=== PATIENT | female | born 1950 | race Caucasian/White ===

== ENCOUNTER 2021-01-03 19:01 | Emergency (ER) | payer OTHER ==
[~2021-01-03] VITALS: Ht 157.5 cm; Wt 96.2 kg
[2021-01-03 19:12] VITALS: BP 142/78
--- NOTE | 2021-01-03 19:35 | NUR ---
PT WAS IN HER KITCHEN, TRIPPED AND FELL AND HIT HER R SHOULDER ON THE KITCHEN COUNTER TOP. DENIES HITTING HER HEAD, NO LOC. PT UNABLE TO RAISE HER R ARM, HAVING 8/10 ACHING PAIN. NO DEFORMITY, SKIN INTACT. PT ABLE TO MOVE FINGERS, RADIAL PULSE INTACT. PT PLACED IN GOWN, BED IN LOWEST POSITION AND SIDERAIL UP X 1. HX - DM, HTN NKA
[2021-01-03] MEDS ORDERED: KETOROLAC 60 MG/2 ML VIAL IM ONE (19:50)
--- NOTE | 2021-01-03 19:58 | NUR ---
X-RAY AT BEDSIDE
--- NOTE | 2021-01-03 20:15 | NUR ---
PT STATES PAIN IS MUCH BETTER, RATING IT 6/10
[2021-01-03 21:47] VITALS: BP 142/78
--- NOTE | 2021-01-03 21:50 | NUR ---
PT HAD A SLING ORDERED BY [facility]. IT WAS CHARTED UNDER MY NAME BUT I DID NOT CHART IT. CHARTING UNDONE BECAUSE I WAS NOT THE ONE WHO CHARTED.
== END 2021-01-03 21:47 | disposition home or self-care (01) ==
LOC: MED 19:01
DX: M75.31 Calcific tendinitis of right shoulder (principal); E11.9 Type 2 diabetes mellitus without complications; I10 Essential (primary) hypertension; W19.XXXA Unspecified fall, initial encounter; Y93.89 Activity, other specified; Y92.89 Other specified places as the place of occurrence of the external cause; Y99.8 Other external cause status
CPT/HCPCS: 73000; 73030; 96372; 99284; J1885